=== PATIENT | female | born 1965 | race Caucasian/White ===

== ENCOUNTER 2017-10-03 09:29 | Observation (INO) | payer MEDICAID ==
[2017-09-28 11:48] LABS: ADD MAN DIFF? NO
[2017-09-28 11:50] LABS: BASOPHIL # 0.1 10^3/ul (0.0-0.1); BASOPHILS % 0.5 % (0.0-2.0); EOSINOPHILS # 0.1 10^3/ul (0.0-0.5); EOSINOPHILS % 1.2 % (0.0-7.0); HEMATOCRIT 43.5 % (37.0-47.0); HEMOGLOBIN 14.3 g/dl (12.0-16.0); LYMPHOCYTES # 2.4 10^3/ul (0.8-2.9); MEAN CORPUSCULAR HEMOGLOBIN 27.4 pg (29.0-33.0); MEAN CORPUSCULAR HGB CONC 32.9 g/dl (32.0-37.0); MEAN CORPUSCULAR VOLUME 83.5 fl (82.0-101.0); MEAN PLATELET VOLUME 10.5 fl (7.4-10.4); MONOCYTES % 10.3 % (0.0-11.0); NEUTROPHIL # 5.9 10^3/ul (1.6-7.5); NEUTROPHILS % 62.7 % (39.0-77.0); PLATELET COUNT 258 10^3/UL (140-415); RED BLOOD COUNT 5.21 10^6/ul (4.20-5.40); RED CELL DISTRIBUTION WIDTH 14.1 % (11.5-14.5)
[2017-09-28 11:50] LABS: WHITE BLOOD COUNT 9.5 10^3/ul (4.8-10.8)
[2017-09-28 12:09] LABS: INR 0.86; PROTIME 11.8 Sec (11.9-14.9); PT RATIO 0.9
[2017-09-28 12:10] LABS: PARTIAL THROMBOPLASTIN TIME 30.7 Sec (25.0-35.0)
[2017-09-28 12:17] LABS: ALANINE AMINOTRANSFERASE 57 IU/L (13-69); ALBUMIN 4.2 g/dl (3.3-4.9); ALBUMIN/GLOBULIN RATIO 1.23; ALKALINE PHOSPHATASE 83 IU/L (42-121); ANION GAP 14 (8-16); ASPARTATE AMINO TRANSFERASE 49 IU/L (15-46); BILIRUBIN,INDIRECT 1.1 mg/dl (0-1.1); BILIRUBIN,TOTAL 1.1 mg/dl (0.2-1.3); BLOOD UREA NITROGEN 17 mg/dl (7-20); CALCIUM 9.5 mg/dl (8.4-10.2); CARBON DIOXIDE 26 mmol/L (21-31); CHLORIDE 105 mmol/L (97-110); GLUCOSE 84 mg/dl (70-220); POTASSIUM 4.2 mmol/L (3.5-5.1); SODIUM 141 mmol/L (135-144); TOTAL PROTEIN 7.6 g/dl (6.1-8.1)
[2017-10-03] MEDS: SOD CHLORIDE 0.9% 1,000 ML IV (10:00)
[2017-10-03] MEDS: CEFAZOLIN 2 GM/50 ML (PMX) 50 ML IVPB (10:00)
[2017-10-03] MEDS ORDERED: ISOSULFAN BLUE 1% 5 ML INJ SC (11:21)
[2017-10-03] MEDS ORDERED: FENTAnyl 50 MCG/ML VIAL IV ×2 (11:30)
[2017-10-03] MEDS ORDERED: HYDROmorphONE 1 MG/5 ML IV SYRINGE IV ×4 (11:30→16:00)
[2017-10-03] MEDS ORDERED: OXYCODONE/ACETAMINOPHEN (5/325) TAB PO ×2 (11:30)
[2017-10-03] MEDS ORDERED: PROPOFOL 20 ML (11:35)
[2017-10-03] MEDS ORDERED: CEFAZOLIN 1 GM INJ (11:35)
[2017-10-03] MEDS ORDERED: LIDOCAINE 100 MG SYRINGE (11:35)
[2017-10-03] MEDS ORDERED: ONDANSETRON 4 MG INJ (11:35)
[2017-10-03] MEDS ORDERED: DEXAMETHASONE 4 MG/ML 1 ML INJ (11:35)
[2017-10-03] MEDS ORDERED: FENTAnyl 50 MCG/ML VIAL (11:35)
[2017-10-03] MEDS ORDERED: ONDANSETRON 4 MG INJ IV (13:30)
[2017-10-03] MEDS ORDERED: morphine 2 MG INJ IV (13:30)
[2017-10-03] MEDS: HYDROmorphONE 1 MG/5 ML IV SYRINGE IV ×2 (13:45→13:53)
[2017-10-03] MEDS: ONDANSETRON 4 MG INJ IV (13:45)
[2017-10-03] MEDS: MEPERIDINE 25 MG INJ IV (13:52)
[2017-10-03] MEDS ORDERED: hydrALAzine 20 MG INJ IV (16:00)
[2017-10-03] MEDS ORDERED: LABETALOL HCL 20MG INJ IV (16:00)
[2017-10-03] MEDS: D5W-0.45 NACL + KCL 20 MEQ 1,000 ML IV ×2 (18:11→20:40)
[2017-10-04] MEDS: D5W-0.45 NACL + KCL 20 MEQ 1,000 ML IV ×2 (02:59→06:00)
[2017-10-04] MEDS: ACETAMINOPHEN 1000MG/100ML IV 100 ML IVPB (08:02)
[2017-10-04] MEDS ORDERED: HYDROCODONE/APAP (5/325) TAB PO (12:00)
[2017-10-04] MEDS: HYDROCODONE/APAP (5/325) TAB PO (12:35)
== END 2017-10-04 16:35 | disposition home or self-care (01) ==
LOC: SDS 09:29 → REC 13:01 → MS1 15:10
DX: C50.911 Malignant neoplasm of unspecified site of right female breast (principal)
CPT/HCPCS: 19301; 71045; 80053; 85025; 85610; 85730; 88307; 93005; 99217

== ENCOUNTER 2017-10-23 00:31 | Emergency (ER) | payer SELFPAY, MEDICAID | END 2017-10-23 01:51 | disposition left against medical advice (07) | LOC: FTE 01:51 | DX: Z53.21 Procedure and treatment not carried out due to patient leaving prior to being seen by health care provider (principal) ==

== ENCOUNTER → 2018-04-13 | Outpatient (CLI) | payer MEDICAID ==
[~2018-04-13] MED LIST: IOHEXOL 300MG/ML 30 ML BTL
[2018-04-13] MEDS: HEPARIN 1000 UNITS/ML 10 ML INJ (14:01)
== END | disposition home or self-care (01) ==
LOC: RAD 13:23
DX: C50.919 Malignant neoplasm of unspecified site of unspecified female breast (principal)
CPT/HCPCS: 77001